=== PATIENT | female | born 1980 | race Caucasian/White ===

== ENCOUNTER 2017-12-12 20:19 | Emergency (ER) | payer OTHER ==
[~2017-12-12] VITALS: Ht 160 cm; Wt 86.0 kg
[~2017-12-12 20:19] MED LIST: LEVO75TA7 PO
[2017-12-12] MEDS ORDERED: IBUPROFEN 600MG TABLET PO ONE (22:45)
[2017-12-13 00:40] LABS: BASOPHILS % 1.5 % (0.0-2.0); EOSINOPHILS % 3.6 % (0.0-5.0); HEMATOCRIT. 32.7 % (36.0-48.0); HEMOGLOBIN. 10.6 g/dL (12.0-16.0); LYMPHOCYTES % 46.9 % (20.0-50.0); MEAN CORPUSCULAR HEMOGLOBIN 27.3 pg (28.0-32.0); MEAN CORPUSCULAR VOLUME 84.2 fL (81.0-99.0); MONOCYTES % 7.9 % (2.0-8.0); NEUTROPHILS % 40.1 % (40.0-76.0); PLATELET 391 x1000/uL (130-400); RED BLOOD CELL COUNT 3.89 mill/uL (4.2-5.4); RED CELL DISTRIBUTION WIDTH 19.6 % (11.6-14.6)
[2017-12-13 00:45] LABS: CHLORIDE 108 mEq/L (98-107)
[2017-12-13 00:48] LABS: HCG SCREEN NEGATIVE
[2017-12-13 01:00] LABS: PARTIAL THROMBOPLASTIN TIME 28.4 sec (23.4-31.0); PROTHROMBIN TIME 10.1 sec (9.4-11.6)
[2017-12-13 02:25] VITALS: BP 135/77
== END 2017-12-13 05:45 | disposition home or self-care (01) ==
LOC: ER 12-13 05:41
DX: S92.322A Displaced fracture of second metatarsal bone, left foot, initial encounter for closed fracture (principal); S92.332A Displaced fracture of third metatarsal bone, left foot, initial encounter for closed fracture; W45.8XXA Other foreign body or object entering through skin, initial encounter; S93.602A Unspecified sprain of left foot, initial encounter; S91.342A Puncture wound with foreign body, left foot, initial encounter; W17.89XA Other fall from one level to another, initial encounter; Y93.01 Activity, walking, marching and hiking; Y92.480 Sidewalk as the place of occurrence of the external cause; D64.89 Other specified anemias; F17.210 Nicotine dependence, cigarettes, uncomplicated; I10 Essential (primary) hypertension; Z88.0 Allergy status to penicillin
CPT/HCPCS: 36415; 73560; 73590; 73610; 73630; 80048; 84703; 85025; 85610; 85730; 86850; 86900; 86901; 99285; Z7610

== ENCOUNTER 2017-12-13 13:59 | Emergency (ER) | payer OTHER ==
[~2017-12-13] VITALS: Ht 160 cm; Wt 86.0 kg
[2017-12-13 20:00] VITALS: BP 126/77
== END 2017-12-13 20:00 | disposition home or self-care (01) ==
LOC: ER 16:19
DX: S90.32XA Contusion of left foot, initial encounter (principal); S80.02XA Contusion of left knee, initial encounter; W45.8XXA Other foreign body or object entering through skin, initial encounter; Y93.9 Activity, unspecified; W19.XXXA Unspecified fall, initial encounter; Y92.89 Other specified places as the place of occurrence of the external cause; I10 Essential (primary) hypertension; F17.210 Nicotine dependence, cigarettes, uncomplicated; Z88.0 Allergy status to penicillin
CPT/HCPCS: 73630; 99283; Z7610

== ENCOUNTER 2018-10-07 14:02 | Inpatient (IN) | payer MEDICAID, OTHER ==
[~2018-10-07] VITALS: Ht 160 cm; Wt 90.7 kg
[2018-10-07] MEDS ORDERED: NITROGLYCERIN 0.4MG TABLET SL SL PRN ×2 (15:45→17:45)
[2018-10-07] MEDS ORDERED: FENTANYL CITRATE/PF 50MCG/ML 2ML VIAL IV ONE (15:45)
[2018-10-07] MEDS ORDERED: NITROGLYCERIN OINT 1GM/INCH UDPKT TD ONE (15:45)
[2018-10-07] MEDS ORDERED: ASPIRIN 81MG TABLET PO ONE (15:45)
[2018-10-07] MEDS ORDERED: LEVOFLOXACIN 500MG PREMIX 100 ML IV ONE (16:00)
[2018-10-07] MEDS ORDERED: AMLODIPINE 10MG TABLET PO ONE (16:00)
[2018-10-07 16:26] LABS: BASOPHILS % 0.9 % (0.0-2.0); EOSINOPHILS % 5.4 % (0.0-5.0); HEMATOCRIT. 41.8 % (36.0-48.0); HEMOGLOBIN. 14.1 g/dL (12.0-16.0); LYMPHOCYTES % 30.6 % (20.0-50.0); MEAN CORPUSCULAR HEMOGLOBIN 31.8 pg (28.0-32.0); MEAN CORPUSCULAR VOLUME 93.9 fL (81.0-99.0); MEAN PLATELET VOLUME 9.2 fl (7.4-10.4); MONOCYTES % 8.4 % (2.0-8.0); NEUTROPHILS % 54.7 % (40.0-76.0); PLATELET 262 x1000/uL (130-400); RED BLOOD CELL COUNT 4.45 mill/uL (4.2-5.4); RED CELL DISTRIBUTION WIDTH 15.5 % (11.6-14.6)
[2018-10-07 16:28] LABS: CHLORIDE 106 mEq/L (98-107)
[2018-10-07 16:36] LABS: HCG SCREEN NEGATIVE
[2018-10-07 17:04] LABS: CLARITY URINE CLEAR (CLEAR); COLOR URINE YELLOW (YELLOW); KETONES URINE NEGATIVE (NEGATIVE); LEUKOCYTE ESTERASE URINE NEGATIVE (NEGATIVE); NITRITE URINE NEGATIVE (NEGATIVE); OCCULT BLOOD URINE NEGATIVE (NEGATIVE); PH URINE 5.5 (4.5-8.0); PROTEIN URINE NEGATIVE (NEGATIVE); SPECIFIC GRAVITY URINE 1.011 (1.005-1.030); UROBILINOGEN URINE 0.2 E.U./dL (0.2-1.0)
[2018-10-07 17:16] LABS: *AMPHETAMINES SCREEN URINE NEGATIVE (NEGATIVE); *BARBITURATES SCREEN URINE NEGATIVE (NEGATIVE); *BENZODIAZEPINES SCREEN URINE NEGATIVE (NEGATIVE); *COCAINE SCREEN URINE NEGATIVE (NEGATIVE); METHADONE URINE SCREEN NEGATIVE (NEGATIVE)
[2018-10-07 17:17] LABS: CANNABINOID URINE SCREEN NEGATIVE (NEGATIVE); OPIATES URINE SCREEN NEGATIVE (NEGATIVE); PHENCYCLIDINE URINE SCREEN NEGATIVE (NEGATIVE)
[2018-10-07] MEDS ORDERED: METHYLPREDNISOLONE SOD SUCC 125 MG/2 ML VIAL IV STA (17:34)
[2018-10-07] MEDS ORDERED: ALBUTEROL (0.083%) 2.5MG/3ML NEB HHN STA (17:34)
[2018-10-07] MEDS ORDERED: IPRATROPIUM BROMIDE (0.02%) 0.5MG/2.5ML NEB HHN STA (17:34)
[2018-10-07] MEDS ORDERED: MAGNESIUM/ALUMINUM HYDROXIDE/SIMETHICONE 30ML UDC PO PRN (17:45)
[2018-10-07] MEDS ORDERED: KETOROLAC 15MG/ML VIAL IV PRN (17:45)
[2018-10-07] MEDS ORDERED: ZOLPIDEM TARTRATE 5MG TABLET PO PRN (17:45)
[2018-10-07] MEDS ORDERED: NA PHOS,M-B/NA PHOS,DI-BA ENEMA 118ML PR PRN (17:45)
[2018-10-07] MEDS ORDERED: ACETAMINOPHEN 325MG TABLET PO PRN (17:45)
[2018-10-07] MEDS ORDERED: DOCUSATE SODIUM 100MG CAPSULE PO PRN (17:45)
[2018-10-07] MEDS ORDERED: GUAIFENESIN 200MG/10ML SUGAR FREE UDC PO PRN (17:45)
[2018-10-07] MEDS ORDERED: CLONIDINE 0.1MG TABLET PO PRN (17:45)
[2018-10-07] MEDS ORDERED: IPRATROPIUM/ALBUTEROL 0.5-3(2.5)MG/3ML NEB INH PRN (17:45)
[2018-10-07] MEDS ORDERED: LORAZEPAM 0.5MG TABLET PO PRN (17:45)
[2018-10-07 18:44] LABS: T4 FREE 0.38 ng/dL (0.76-1.46)
[2018-10-07] MEDS: ONDANSETRON HCL 4MG/2ML INJ IV PRN (21:29)
[2018-10-07 22:25] VITALS: BP 169/108
[2018-10-07] MEDS: LISINOPRIL 20MG TABLET PO SCH (22:46)
[2018-10-07] MEDS: METOPROLOL TARTRATE 25MG TABLET PO SCH (22:46)
[2018-10-08] VITALS: BP 145/93
[2018-10-08] MEDS: AMLODIPINE 10MG TABLET PO SCH ×2 (00:47→08:49)
[2018-10-08 01:33] LABS: CREATINE KINASE 185 IU/L (26-192)
[2018-10-08 01:35] LABS: CREATINE KINASE MB FRACTION 2.4 ng/mL (0.5-3.6)
[2018-10-08 04:00] VITALS: BP 133/92
[2018-10-08] MEDS: ONDANSETRON HCL 4MG/2ML INJ IV PRN ×2 (04:39→08:57)
[2018-10-08 08:00] VITALS: BP 124/61
[2018-10-08] MEDS: LISINOPRIL 20MG TABLET PO SCH (08:49)
[2018-10-08] MEDS: METOPROLOL TARTRATE 25MG TABLET PO SCH (08:49)
[2018-10-08 08:59] LABS: CREATINE KINASE 162 IU/L (26-192)
[2018-10-08 09:00] LABS: CREATINE KINASE MB FRACTION 2.4 ng/mL (0.5-3.6)
[2018-10-08] MEDS ORDERED: FAMOTIDINE 20MG TABLET PO SCH (09:00)
[2018-10-08] MEDS ORDERED: ASPIRIN 325MG EC TABLET PO SCH (09:00)
[2018-10-08 11:04] VITALS: BP 125/80
[2018-10-08 12:00] VITALS: BP 132/87
== END 2018-10-08 13:00 | disposition home or self-care (01) | DRG 203 ==
LOC: ER 14:02 → EDBEDREQ 15:41 → 5WST 17:21 → EDBEDREQ 17:30 → EDBEDREQTM 17:30 → ENRESERV 19:57 → EDBEDREQ 22:14
PROVIDERS: ADMIT Internal Medicine; ATTEND Internal Medicine
DX: R07.89 Other chest pain (principal); E83.51 Hypocalcemia; E03.9 Hypothyroidism, unspecified; E66.9 Obesity, unspecified; F17.210 Nicotine dependence, cigarettes, uncomplicated; I10 Essential (primary) hypertension; Z88.0 Allergy status to penicillin; Z91.11 Patient's noncompliance with dietary regimen; Z91.14 Patient's other noncompliance with medication regimen; Z68.35 Body mass index [BMI] 35.0-35.9, adult
CPT/HCPCS: 36415; 71045; 80061; 80305; 82550; 82553; 83036; 83605; 83880; 84145; 84439; 84443; 84484; 84703; 93005; 94644; 96365; 96366; 96375; 99291; J1885; J1956; J2405; J2930; J3010; J7611

== ENCOUNTER 2022-06-07 12:44 | Emergency (ER) | payer MEDICAID ==
[~2022-06-07] VITALS: Ht 162.6 cm; Wt 80.0 kg
[2022-06-07] MEDS ORDERED: ACETAMINOPHEN 325MG TABLET PO STA (12:55)
[2022-06-07] MEDS ORDERED: METOCLOPRAMIDE HCL 10MG/2ML VIAL IV ONE (13:00)
[2022-06-07] MEDS ORDERED: LABETALOL 5MG/ML SYR 20 MG/4 ML SYRINGE IV ONE ×2 (14:15→15:15)
[2022-06-07 14:16] LABS: BASOPHILS % 0.5 % (0.0-2.0); EOSINOPHILS % 1.5 % (0.0-5.0); HEMATOCRIT. 39.6 % (36.0-48.0); HEMOGLOBIN. 13.5 g/dL (12.0-16.0); LYMPHOCYTES % 23.1 % (20.0-50.0); MEAN CORPUSCULAR HEMOGLOBIN 30.6 pg (28.0-32.0); MEAN PLATELET VOLUME 8.7 fl (7.4-10.4); MONOCYTES % 8.5 % (2.0-8.0); NEUTROPHILS % 66.4 % (40.0-76.0); PLATELET 266 x1000/uL (130-400); RED BLOOD CELL COUNT 4.41 mill/uL (4.2-5.4); RED CELL DISTRIBUTION WIDTH 14.4 % (11.6-14.6)
[2022-06-07 14:21] LABS: CHLORIDE 99 mEq/L (98-107)
[2022-06-07] MEDS ORDERED: KCL 10MEQ/50ML PREMIX 50 ML IV ONE (15:00)
[2022-06-07] MEDS ORDERED: POTASSIUM CHLORIDE 20MEQ TABLET SR PO SCH (15:00)
[2022-06-07] MEDS ORDERED: SODIUM CHLORIDE 0.9% 1,000 ML IV ONE (16:45)
[2022-06-07 18:53] VITALS: BP 167/90
== END 2022-06-07 19:46 | disposition home or self-care (01) ==
LOC: ER 12:44
DX: G43.909 Migraine, unspecified, not intractable, without status migrainosus (principal); I10 Essential (primary) hypertension; I69.351 Hemiplegia and hemiparesis following cerebral infarction affecting right dominant side; E03.9 Hypothyroidism, unspecified; Z88.0 Allergy status to penicillin
CPT/HCPCS: 36415; 80053; 85025; 96361; 96374; 96375; 96376; 99285; J2765; J3490; J7030

== ENCOUNTER 2022-06-26 09:05 | Emergency (ER) | payer MEDICAID ==
[~2022-06-26] VITALS: Ht 160 cm; Wt 81.6 kg
[2022-06-26] MEDS ORDERED: ONDANSETRON 4MG ODT PO ONE (09:45)
[2022-06-26] MEDS ORDERED: ACETAMINOPHEN 325MG TABLET PO ONE (12:00)
[2022-06-26] MEDS ORDERED: AMLODIPINE 10MG TABLET PO SCH (13:00)
[2022-06-26] MEDS ORDERED: AMLO5TAB88 PO (13:34)
[2022-06-26 13:48] VITALS: BP 189/123
== END 2022-06-26 14:31 | disposition home or self-care (01) ==
LOC: ER 09:14
DX: F10.129 Alcohol abuse with intoxication, unspecified (principal); Y90.9 Presence of alcohol in blood, level not specified; I10 Essential (primary) hypertension; E03.9 Hypothyroidism, unspecified; I69.351 Hemiplegia and hemiparesis following cerebral infarction affecting right dominant side; Z88.0 Allergy status to penicillin
CPT/HCPCS: 99284; Q0162

== ENCOUNTER 2022-11-09 12:42 | Inpatient (IN) | payer MEDICAID ==
[~2022-11-09] VITALS: Ht 170.2 cm; Wt 79.5 kg
[~2022-11-09 12:42] MED LIST changes: +AMLO5TAB88 PO
[2022-11-09] MEDS ORDERED: SODIUM CHLORIDE 0.9% 1,000 ML IV ONE (14:15)
[2022-11-09 15:25] LABS: CHLORIDE 108 mEq/L (98-107)
[2022-11-09 15:30] LABS: PROTHROMBIN TIME 10.9 sec (9.6-11.0)
[2022-11-09 15:37] LABS: BASOPHILS % 0.4 % (0.0-2.0); EOSINOPHILS % 0.9 % (0.0-5.0); HEMATOCRIT. 41.8 % (36.0-48.0); HEMOGLOBIN. 14.5 g/dL (12.0-16.0); LYMPHOCYTES % 13.5 % (20.0-50.0); MEAN CORPUSCULAR HEMOGLOBIN 30.9 pg (28.0-32.0); MEAN CORPUSCULAR VOLUME 88.9 fL (81.0-99.0); MEAN PLATELET VOLUME 7.6 fl (7.4-10.4); MONOCYTES % 7.1 % (2.0-8.0); NEUTROPHILS % 78.1 % (40.0-76.0); PLATELET 333 x1000/uL (130-400); RED CELL DISTRIBUTION WIDTH 14.5 % (11.6-14.6)
[2022-11-09 15:42] LABS: ETHANOL BLOOD < 10 mg/dL
[2022-11-09 15:43] LABS: HCG SCREEN NEGATIVE
[2022-11-09] MEDS ORDERED: CLONIDINE 0.1MG TABLET PO NR (15:45)
[2022-11-09] MEDS ORDERED: FUROSEMIDE 20MG/2ML VIAL IVP NR (16:15)
[2022-11-09] MEDS ORDERED: ASPIRIN 325MG EC TABLET PO NR (16:15)
[2022-11-09] MEDS ORDERED: HYDRALAZINE 20MG/ML VIAL IV ONE (17:00)
[2022-11-09 18:49] LABS: CLARITY URINE CLEAR (CLEAR); COLOR URINE YELLOW (YELLOW); KETONES URINE TRACE (NEGATIVE); LEUKOCYTE ESTERASE URINE TRACE (NEGATIVE); NITRITE URINE NEGATIVE (NEGATIVE); OCCULT BLOOD URINE NEGATIVE (NEGATIVE); PROTEIN URINE 2+ (NEGATIVE); SPECIFIC GRAVITY URINE 1.018 (1.005-1.030)
[2022-11-09 19:11] LABS: *AMPHETAMINES SCREEN URINE NEGATIVE (NEGATIVE); *BARBITURATES SCREEN URINE NEGATIVE (NEGATIVE); *BENZODIAZEPINES SCREEN URINE NEGATIVE (NEGATIVE); *COCAINE SCREEN URINE NEGATIVE (NEGATIVE); CANNABINOID URINE SCREEN NEGATIVE (NEGATIVE); METHADONE URINE SCREEN NEGATIVE (NEGATIVE); OPIATES URINE SCREEN NEGATIVE (NEGATIVE); PHENCYCLIDINE URINE SCREEN NEGATIVE (NEGATIVE)
[2022-11-09 20:19] VITALS: BP 151/104
[2022-11-09 20:20] VITALS: BP 151/104
[2022-11-09] MEDS ORDERED: ONDANSETRON HCL 4MG/2ML INJ IV PRN (21:45)
[2022-11-09] MEDS ORDERED: DOCUSATE SODIUM 100MG CAPSULE PO PRN (21:45)
[2022-11-09] MEDS ORDERED: LORAZEPAM 0.5MG TABLET PO PRN (21:45)
[2022-11-09] MEDS ORDERED: IPRATROPIUM/ALBUTEROL 0.5-3(2.5)MG/3ML NEB HHN PRN (21:45)
[2022-11-09] MEDS ORDERED: NALOXONE HCL 0.4MG/ML VIAL IV PRN (21:45)
[2022-11-09] MEDS ORDERED: ACETAMINOPHEN 325MG TABLET PO PRN (21:45)
[2022-11-09] MEDS ORDERED: ALBUTEROL (0.083%) 2.5MG/3ML NEB HHN PRN (22:45)
[2022-11-09] MEDS ORDERED: IPRATROPIUM BROMIDE (0.02%) 0.5MG/2.5ML NEB HHN PRN (22:45)
[2022-11-10] VITALS: BP 163/110
[2022-11-10] MEDS: CLONIDINE 0.1MG TABLET PO PRN ×2 (01:27→16:53)
[2022-11-10] MEDS: HYDROCODONE/ACETAMINOPHEN 5/325MG TABLET PO PRN ×3 (01:27→19:31)
[2022-11-10 04:00] VITALS: BP 145/96
[2022-11-10 06:45] LABS: BASOPHILS % 0.6 % (0.0-2.0); EOSINOPHILS % 4.6 % (0.0-5.0); HEMOGLOBIN. 13.8 g/dL (12.0-16.0); LYMPHOCYTES % 38.8 % (20.0-50.0); MEAN CORPUSCULAR HEMOGLOBIN 30.6 pg (28.0-32.0); MEAN CORPUSCULAR VOLUME 88.7 fL (81.0-99.0); MONOCYTES % 8.3 % (2.0-8.0); NEUTROPHILS % 47.7 % (40.0-76.0); PLATELET 284 x1000/uL (130-400); RED BLOOD CELL COUNT 4.51 mill/uL (4.2-5.4); RED CELL DISTRIBUTION WIDTH 14.4 % (11.6-14.6)
[2022-11-10 08:00] VITALS: BP 150/90
[2022-11-10 08:09] LABS: HEPATITIS B SURFACE ANTIGEN NEGATIVE
[2022-11-10 09:03] LABS: CHLORIDE 106 mEq/L (98-107)
[2022-11-10] MEDS ORDERED: INFLUENZA VACCINE 05/PF 0.5 ML SYRINGE IM ONE (11:00)
[2022-11-10] MEDS ORDERED: PNEUMOCOCCAL 23-VAL P-SAC VAC 0.5 ML IM ONE (11:00)
[2022-11-10 12:00] VITALS: BP 162/90
[2022-11-10] MEDS ORDERED: AMLODIPINE 5MG TABLET PO SCH (12:00)
[2022-11-10] MEDS: ASPIRIN 81MG EC TABLET PO SCH (12:49)
[2022-11-10 16:00] VITALS: BP 181/89
[2022-11-10] MEDS: HYDRALAZINE 20MG/ML VIAL IV PRN (19:10)
[2022-11-10 20:00] VITALS: BP 163/93
[2022-11-10] MEDS: AMLODIPINE 5MG TABLET PO SCH (21:30)
[2022-11-11] VITALS (7 sets, daily range): BP systolic 126–182; BP diastolic 85–109
[2022-11-11 06:54] LABS: BASOPHILS % 0.4 % (0.0-2.0); EOSINOPHILS % 4.2 % (0.0-5.0); HEMATOCRIT. 41.5 % (36.0-48.0); HEMOGLOBIN. 13.7 g/dL (12.0-16.0); LYMPHOCYTES % 18.3 % (20.0-50.0); MEAN CORPUSCULAR HEMOGLOBIN 29.8 pg (28.0-32.0); MEAN CORPUSCULAR VOLUME 90.1 fL (81.0-99.0); MEAN PLATELET VOLUME 7.9 fl (7.4-10.4); MONOCYTES % 7.3 % (2.0-8.0); NEUTROPHILS % 69.8 % (40.0-76.0); PLATELET 283 x1000/uL (130-400); RED CELL DISTRIBUTION WIDTH 14.7 % (11.6-14.6)
[2022-11-11] MEDS ORDERED: LEVOTHYROXINE SODIUM 100MCG TABLET PO NR (10:00)
[2022-11-11] MEDS: AMLODIPINE 5MG TABLET PO SCH ×2 (10:25→20:08)
[2022-11-11] MEDS: ASPIRIN 81MG EC TABLET PO SCH (10:26)
[2022-11-11] MEDS: HYDRALAZINE HCL 50MG TABLET PO SCH ×3 (10:36→21:54)
[2022-11-11] MEDS ORDERED: POTASSIUM CHLORIDE 20MEQ/PACKET PO NR (12:30)
[2022-11-11] MEDS: HYDROCODONE/ACETAMINOPHEN 5/325MG TABLET PO PRN (12:34)
[2022-11-11] MEDS: HYDRALAZINE 20MG/ML VIAL IV PRN ×2 (12:36→18:59)
[2022-11-12 04:00] VITALS: BP 150/112
[2022-11-12] MEDS: HYDRALAZINE HCL 50MG TABLET PO SCH ×3 (05:53→21:19)
[2022-11-12 07:02] LABS: BASOPHILS % 0.4 % (0.0-2.0); EOSINOPHILS % 5.4 % (0.0-5.0); HEMATOCRIT. 41.9 % (36.0-48.0); LYMPHOCYTES % 23.4 % (20.0-50.0); MEAN CORPUSCULAR HEMOGLOBIN 30.3 pg (28.0-32.0); MEAN CORPUSCULAR VOLUME 90.6 fL (81.0-99.0); MEAN PLATELET VOLUME 7.9 fl (7.4-10.4); MONOCYTES % 7.2 % (2.0-8.0); NEUTROPHILS % 63.6 % (40.0-76.0); PLATELET 303 x1000/uL (130-400); RED BLOOD CELL COUNT 4.62 mill/uL (4.2-5.4)
[2022-11-12] MEDS: LEVOTHYROXINE SODIUM 100MCG TABLET PO SCH (07:14)
[2022-11-12] MEDS: CLONIDINE 0.1MG TABLET PO PRN (07:14)
[2022-11-12 07:21] VITALS: BP 162/112
[2022-11-12 08:00] VITALS: BP 159/99
[2022-11-12] MEDS ORDERED: POTASSIUM CHLORIDE 20MEQ/PACKET PO NR (08:00)
[2022-11-12] MEDS: ASPIRIN 81MG EC TABLET PO SCH (09:12)
[2022-11-12] MEDS: AMLODIPINE 5MG TABLET PO SCH ×2 (09:14→21:18)
[2022-11-12 12:00] VITALS: BP 163/100
[2022-11-12] MEDS: HYDROCODONE/ACETAMINOPHEN 5/325MG TABLET PO PRN ×2 (14:39→21:20)
[2022-11-12 16:00] VITALS: BP 146/95
[2022-11-12] MEDS: ACETAMINOPHEN 325MG TABLET PO PRN (18:08)
[2022-11-12 20:00] VITALS: BP 166/103
[2022-11-13] VITALS: BP 142/107
[2022-11-13] MEDS: ACETAMINOPHEN 325MG TABLET PO PRN (00:40)
[2022-11-13 04:00] VITALS: BP_SYST 147; BP_SYST 168; BP_DIAS 103; BP_DIAS 117; BP_DIAS 118
[2022-11-13] MEDS: LEVOTHYROXINE SODIUM 100MCG TABLET PO SCH (06:04)
[2022-11-13] MEDS: HYDRALAZINE HCL 50MG TABLET PO SCH ×2 (06:04→13:11)
[2022-11-13 08:00] VITALS: BP 129/53
[2022-11-13] MEDS: ASPIRIN 81MG EC TABLET PO SCH (08:17)
[2022-11-13] MEDS: AMLODIPINE 5MG TABLET PO SCH (08:18)
[2022-11-13] MEDS: HYDROCODONE/ACETAMINOPHEN 5/325MG TABLET PO PRN (08:21)
[2022-11-13 08:37] LABS: BASOPHILS % 0.3 % (0.0-2.0); EOSINOPHILS % 4.6 % (0.0-5.0); HEMATOCRIT. 40.9 % (36.0-48.0); HEMOGLOBIN. 13.9 g/dL (12.0-16.0); LYMPHOCYTES % 21.5 % (20.0-50.0); MEAN CORPUSCULAR HEMOGLOBIN 30.4 pg (28.0-32.0); MEAN CORPUSCULAR VOLUME 89.6 fL (81.0-99.0); MEAN PLATELET VOLUME 7.8 fl (7.4-10.4); MONOCYTES % 7.1 % (2.0-8.0); NEUTROPHILS % 66.5 % (40.0-76.0); PLATELET 290 x1000/uL (130-400); RED BLOOD CELL COUNT 4.56 mill/uL (4.2-5.4); RED CELL DISTRIBUTION WIDTH 14.6 % (11.6-14.6)
[2022-11-13 08:54] LABS: CHLORIDE 106 mEq/L (98-107)
[2022-11-13] MEDS ORDERED: LOSARTAN POTASSIUM 50 MG TABLET PO SCH (09:30)
[2022-11-13 12:00] VITALS: BP 152/94
[2022-11-13] MEDS ORDERED: LEVO100T9 PO (13:22)
[2022-11-13] MEDS ORDERED: AMLO5TAB88 PO (13:22)
[2022-11-13] MEDS ORDERED: ASPI-1406 PO (13:22)
[2022-11-13] MEDS ORDERED: HYDR-4135 PO (13:22)
[2022-11-13] MEDS ORDERED: LOSA50TA3 PO (13:22)
[2022-11-13] MEDS ORDERED: MECL-217 MT (22:00)
== END 2022-11-13 16:20 | disposition home or self-care (01) | DRG 48 ==
LOC: ER 12:42 → EDBEDREQ 14:11 → EDBEDREQSVC 15:55 → 7EST 17:55 → EDBEDREQ 18:24 → EDBEDREQTM 18:24 → ENRESERV 19:09 → 7EST 20:00
PROVIDERS: ADMIT Internal Medicine; ATTEND Internal Medicine
DX: G90.8 Other disorders of autonomic nervous system (principal); I50.31 Acute diastolic (congestive) heart failure; I16.9 Hypertensive crisis, unspecified; E88.09 Other disorders of plasma-protein metabolism, not elsewhere classified; M94.0 Chondrocostal junction syndrome [Tietze]; I11.0 Hypertensive heart disease with heart failure; E03.9 Hypothyroidism, unspecified; J44.9 Chronic obstructive pulmonary disease, unspecified; Z59.01 Sheltered homelessness; E87.6 Hypokalemia; I16.0 Hypertensive urgency; Z88.0 Allergy status to penicillin; F17.210 Nicotine dependence, cigarettes, uncomplicated; Z79.82 Long term (current) use of aspirin
CPT/HCPCS: 36415; 70551; 71045; 80048; 80053; 80305; 80320; 81003; 83605; 83880; 84145; 84443; 84484; 84703; 85025; 85379; 86803; 87340; 90686; 90732; 93005; 93306; 93880; 93970; 97162; 99291; J0360; J1940; J2405; J7030; G0480

== ENCOUNTER 2022-11-13 18:47 | Emergency (ER) | payer MEDICAID, OTHER ==
[~2022-11-13] VITALS: Ht 160 cm; Wt 78.0 kg
[~2022-11-13 18:47] MED LIST changes: +ASPI-1406 PO; +HYDR-4135 PO; +LEVO100T9 PO; +LOSA50TA3 PO
[2022-11-13] MEDS ORDERED: MECLIZINE 25MG TABLET PO ONE (21:00)
[2022-11-13 21:11] LABS: BASOPHILS % 0.5 % (0.0-2.0); EOSINOPHILS % 0.4 % (0.0-5.0); HEMATOCRIT. 42.3 % (36.0-48.0); HEMOGLOBIN. 14.1 g/dL (12.0-16.0); LYMPHOCYTES % 7.9 % (20.0-50.0); MEAN CORPUSCULAR HEMOGLOBIN 29.9 pg (28.0-32.0); MEAN CORPUSCULAR VOLUME 89.6 fL (81.0-99.0); MEAN PLATELET VOLUME 8.5 fl (7.4-10.4); MONOCYTES % 6.2 % (2.0-8.0); PLATELET 353 x1000/uL (130-400); RED BLOOD CELL COUNT 4.72 mill/uL (4.2-5.4); RED CELL DISTRIBUTION WIDTH 15.1 % (11.6-14.6)
[2022-11-13] MEDS ORDERED: SODIUM CHLORIDE 0.9% 1,000 ML IV ONE (21:15)
[2022-11-13 21:19] LABS: CHLORIDE 99 mEq/L (98-107)
[2022-11-13] MEDS ORDERED: MECL-217 MT (22:00)
[2022-11-13 22:35] VITALS: BP 185/124
== END 2022-11-13 22:30 | disposition home or self-care (01) ==
LOC: ER 18:47
DX: R42 Dizziness and giddiness (principal); I10 Essential (primary) hypertension; E03.9 Hypothyroidism, unspecified; Z86.73 Personal history of transient ischemic attack (TIA), and cerebral infarction without residual deficits
CPT/HCPCS: 36415; 80053; 85025; 93005; 96360; 99284; J8597; Z7610

== ENCOUNTER 2022-12-09 11:32 | Inpatient (IN) | payer MEDICAID, OTHER ==
[~2022-12-09] VITALS: Ht 167.6 cm; Wt 78.9 kg
[~2022-12-09 11:32] MED LIST changes: +MECL-217 MT
[2022-12-09 12:47] LABS: BASOPHILS % 0.3 % (0.0-2.0); EOSINOPHILS % 0.6 % (0.0-5.0); HEMATOCRIT. 43.3 % (36.0-48.0); HEMOGLOBIN. 14.4 g/dL (12.0-16.0); LYMPHOCYTES % 9.5 % (20.0-50.0); MEAN CORPUSCULAR VOLUME 90.2 fL (81.0-99.0); MEAN PLATELET VOLUME 7.8 fl (7.4-10.4); MONOCYTES % 5.1 % (2.0-8.0); NEUTROPHILS % 84.5 % (40.0-76.0); PLATELET 333 x1000/uL (130-400); RED CELL DISTRIBUTION WIDTH 15.8 % (11.6-14.6)
[2022-12-09 12:57] LABS: CHLORIDE 104 mEq/L (98-107)
[2022-12-09 13:09] LABS: HCG SCREEN NEGATIVE
[2022-12-09 17:40] LABS: CLARITY URINE CLOUDY (CLEAR); COLOR URINE YELLOW (YELLOW); KETONES URINE TRACE (NEGATIVE); LEUKOCYTE ESTERASE URINE TRACE (NEGATIVE); NITRITE URINE NEGATIVE (NEGATIVE); OCCULT BLOOD URINE NEGATIVE (NEGATIVE); PROTEIN URINE 2+ (NEGATIVE); UROBILINOGEN URINE 0.2 E.U./dL (0.2-1.0)
[2022-12-09] MEDS ORDERED: LABETALOL 5MG/ML SYR 20 MG/4 ML SYRINGE IV ONE (19:15)
[2022-12-10] MEDS: HYDRALAZINE 20MG/ML VIAL IV PRN ×3 (07:32→17:28)
[2022-12-10] MEDS ORDERED: DIPHENHYDRAMINE 50MG/ML VIAL IV PRN (09:30)
[2022-12-10] MEDS ORDERED: ONDANSETRON HCL 4MG/2ML INJ IV PRN (09:30)
[2022-12-10] MEDS ORDERED: IPRATROPIUM/ALBUTEROL 0.5-3(2.5)MG/3ML NEB HHN PRN (09:30)
[2022-12-10] MEDS: ENOXAPARIN 40MG/0.4ML SYR SUBCUT SCH (10:26)
[2022-12-10] MEDS: CLONIDINE 0.1MG TABLET PO PRN ×2 (13:10→17:50)
[2022-12-10] MEDS: AMLODIPINE 10MG TABLET PO SCH (13:12)
[2022-12-10] MEDS: LOSARTAN POTASSIUM 50 MG TABLET PO SCH (13:12)
[2022-12-10 15:15] VITALS: BP_SYST 116; BP_SYST 134; BP_DIAS 48; BP_DIAS 86
[2022-12-10 17:00] VITALS: BP 193/116
[2022-12-10] MEDS: ACETAMINOPHEN 325MG TABLET PO PRN (17:31)
[2022-12-10 18:00] VITALS: BP 173/106
[2022-12-10 19:44] VITALS: BP 152/104
[2022-12-10 20:50] VITALS: BP 153/112
[2022-12-10 23:05] VITALS: BP 165/107
[2022-12-10] MEDS: METOPROLOL TARTRATE 25MG TABLET PO SCH (23:08)
[2022-12-11] VITALS (7 sets, daily range): BP systolic 147–180; BP diastolic 50–118
[2022-12-11] MEDS: HYDRALAZINE 20MG/ML VIAL IV PRN ×3 (02:23→18:33)
[2022-12-11] MEDS: ACETAMINOPHEN 325MG TABLET PO PRN (02:28)
[2022-12-11 06:08] LABS: *AMPHETAMINES SCREEN URINE NEGATIVE (NEGATIVE); *BARBITURATES SCREEN URINE NEGATIVE (NEGATIVE); *BENZODIAZEPINES SCREEN URINE NEGATIVE (NEGATIVE); *COCAINE SCREEN URINE NEGATIVE (NEGATIVE); CANNABINOID URINE SCREEN NEGATIVE (NEGATIVE); METHADONE URINE SCREEN NEGATIVE (NEGATIVE); OPIATES URINE SCREEN NEGATIVE (NEGATIVE); PHENCYCLIDINE URINE SCREEN NEGATIVE (NEGATIVE)
[2022-12-11 07:43] LABS: BASOPHILS % 0.4 % (0.0-2.0); EOSINOPHILS % 0.7 % (0.0-5.0); HEMATOCRIT. 42.6 % (36.0-48.0); HEMOGLOBIN. 14.2 g/dL (12.0-16.0); LYMPHOCYTES % 15.6 % (20.0-50.0); MEAN CORPUSCULAR HEMOGLOBIN 30.1 pg (28.0-32.0); MEAN CORPUSCULAR VOLUME 90.2 fL (81.0-99.0); MEAN PLATELET VOLUME 8.8 fl (7.4-10.4); MONOCYTES % 5.1 % (2.0-8.0); NEUTROPHILS % 78.2 % (40.0-76.0); PLATELET 306 x1000/uL (130-400); RED BLOOD CELL COUNT 4.72 mill/uL (4.2-5.4); RED CELL DISTRIBUTION WIDTH 16.1 % (11.6-14.6)
[2022-12-11 07:52] LABS: CHLORIDE 107 mEq/L (98-107)
[2022-12-11 08:08] LABS: HDL CHOLESTEROL 78 mg/dL (40-59); LDL CHOLESTEROL 110 mg/dL (5-100)
[2022-12-11] MEDS: AMLODIPINE 10MG TABLET PO SCH (09:48)
[2022-12-11] MEDS: LOSARTAN POTASSIUM 50 MG TABLET PO SCH (09:48)
[2022-12-11] MEDS: METOPROLOL TARTRATE 25MG TABLET PO SCH ×2 (09:49→21:57)
[2022-12-11] MEDS ORDERED: METOPROLOL TARTRATE 25MG TABLET PO NR (10:45)
[2022-12-11] MEDS ORDERED: LOSARTAN POTASSIUM 50 MG TABLET PO NR (10:45)
[2022-12-11] MEDS: ENOXAPARIN 40MG/0.4ML SYR SUBCUT SCH (12:22)
[2022-12-11] MEDS: LEVOTHYROXINE SODIUM 100MCG TABLET PO SCH (12:23)
[2022-12-11] MEDS: ASPIRIN 81MG TABLET PO SCH (12:24)
[2022-12-11 13:45] LABS: T4 FREE 0.58 ng/dL (0.76-1.46)
[2022-12-11] MEDS: ATORVASTATIN CALCIUM 40MG TABLET PO SCH (21:57)
[2022-12-12] VITALS (7 sets, daily range): BP systolic 153–170; BP diastolic 91–111
[2022-12-12] MEDS: CLONIDINE 0.1MG TABLET PO PRN (00:40)
[2022-12-12] MEDS: LEVOTHYROXINE SODIUM 100MCG TABLET PO SCH (06:37)
[2022-12-12] MEDS: ENOXAPARIN 40MG/0.4ML SYR SUBCUT SCH (09:13)
[2022-12-12] MEDS: ASPIRIN 81MG TABLET PO SCH (09:13)
[2022-12-12] MEDS: AMLODIPINE 10MG TABLET PO SCH (09:13)
[2022-12-12] MEDS: METOPROLOL TARTRATE 25MG TABLET PO SCH (09:14)
[2022-12-12] MEDS: LOSARTAN POTASSIUM 100 MG TABLET PO SCH (09:21)
[2022-12-12] MEDS ORDERED: LEVOTHYROXINE SODIUM 50MCG TABLET PO NR (09:30)
[2022-12-12] MEDS: HYDRALAZINE 20MG/ML VIAL IV PRN (16:08)
[2022-12-12] MEDS: TRIAMTERENE/HCTZ 37.5/25MG TABLET PO SCH (16:11)
[2022-12-12] MEDS ORDERED: ABIL5 PO (20:13)
[2022-12-12] MEDS ORDERED: GABA-532 PO (20:14)
[2022-12-12] MEDS ORDERED: KEPP500 PO (20:16)
[2022-12-12] MEDS: METOPROLOL TARTRATE 50MG TABLET PO SCH (20:28)
[2022-12-12] MEDS: ATORVASTATIN CALCIUM 40MG TABLET PO SCH (20:28)
[2022-12-13 00:03] VITALS: BP 140/98
[2022-12-13 04:14] VITALS: BP 135/81
[2022-12-13] MEDS: LEVOTHYROXINE SODIUM 100MCG TABLET PO SCH (06:09)
[2022-12-13 06:40] LABS: BASOPHILS % 0.8 % (0.0-2.0); EOSINOPHILS % 3.3 % (0.0-5.0); HEMATOCRIT. 43.2 % (36.0-48.0); HEMOGLOBIN. 14.5 g/dL (12.0-16.0); LYMPHOCYTES % 29.3 % (20.0-50.0); MEAN CORPUSCULAR HEMOGLOBIN 30.2 pg (28.0-32.0); MEAN PLATELET VOLUME 8.8 fl (7.4-10.4); MONOCYTES % 9.5 % (2.0-8.0); NEUTROPHILS % 57.1 % (40.0-76.0); PLATELET 325 x1000/uL (130-400); RED BLOOD CELL COUNT 4.81 mill/uL (4.2-5.4); RED CELL DISTRIBUTION WIDTH 16.1 % (11.6-14.6)
[2022-12-13 08:00] VITALS: BP 160/105
[2022-12-13] MEDS: ENOXAPARIN 40MG/0.4ML SYR SUBCUT SCH (08:46)
[2022-12-13] MEDS: METOPROLOL TARTRATE 50MG TABLET PO SCH ×2 (08:47→21:38)
[2022-12-13] MEDS: TRIAMTERENE/HCTZ 37.5/25MG TABLET PO SCH (08:47)
[2022-12-13] MEDS: ASPIRIN 81MG TABLET PO SCH (08:47)
[2022-12-13] MEDS: LEVETIRACETAM 500MG TABLET PO SCH ×2 (08:48→16:36)
[2022-12-13] MEDS: LOSARTAN POTASSIUM 100 MG TABLET PO SCH (08:48)
[2022-12-13] MEDS: CLONIDINE 0.1MG TABLET PO PRN (08:48)
[2022-12-13] MEDS: AMLODIPINE 10MG TABLET PO SCH (08:48)
[2022-12-13] MEDS: GABAPENTIN 300MG CAPSULE PO SCH ×3 (08:48→16:36)
[2022-12-13] MEDS: ARIPIPRAZOLE 5MG TABLET PO SCH (11:14)
[2022-12-13 12:00] VITALS: BP 136/98
[2022-12-13] MEDS: HYDRALAZINE HCL 50MG TABLET PO SCH ×2 (13:57→21:38)
[2022-12-13 16:00] VITALS: BP 134/88
[2022-12-13 20:19] VITALS: BP 112/72
[2022-12-13] MEDS: ATORVASTATIN CALCIUM 40MG TABLET PO SCH (21:38)
[2022-12-14 00:33] VITALS: BP 150/79
[2022-12-14 05:15] VITALS: BP 126/80
[2022-12-14] MEDS: HYDRALAZINE HCL 50MG TABLET PO SCH ×3 (05:57→21:06)
[2022-12-14] MEDS: LEVOTHYROXINE SODIUM 100MCG TABLET PO SCH (05:57)
[2022-12-14 07:50] LABS: BASOPHILS % 0.8 % (0.0-2.0); EOSINOPHILS % 3.2 % (0.0-5.0); HEMATOCRIT. 43.7 % (36.0-48.0); HEMOGLOBIN. 14.7 g/dL (12.0-16.0); LYMPHOCYTES % 25.1 % (20.0-50.0); MEAN CORPUSCULAR HEMOGLOBIN 30.3 pg (28.0-32.0); MEAN CORPUSCULAR VOLUME 90.4 fL (81.0-99.0); MONOCYTES % 7.7 % (2.0-8.0); NEUTROPHILS % 63.2 % (40.0-76.0); PLATELET 350 x1000/uL (130-400); RED BLOOD CELL COUNT 4.84 mill/uL (4.2-5.4); RED CELL DISTRIBUTION WIDTH 15.7 % (11.6-14.6)
[2022-12-14 08:00] VITALS: BP 134/97
[2022-12-14] MEDS: ENOXAPARIN 40MG/0.4ML SYR SUBCUT SCH (08:46)
[2022-12-14] MEDS: AMLODIPINE 10MG TABLET PO SCH (08:46)
[2022-12-14] MEDS: LOSARTAN POTASSIUM 100 MG TABLET PO SCH (08:46)
[2022-12-14] MEDS: TRIAMTERENE/HCTZ 37.5/25MG TABLET PO SCH (08:46)
[2022-12-14] MEDS: ARIPIPRAZOLE 5MG TABLET PO SCH (08:47)
[2022-12-14] MEDS: LEVETIRACETAM 500MG TABLET PO SCH ×2 (08:47→17:04)
[2022-12-14] MEDS: ASPIRIN 81MG TABLET PO SCH (08:47)
[2022-12-14] MEDS: GABAPENTIN 300MG CAPSULE PO SCH ×3 (08:47→17:04)
[2022-12-14] MEDS: METOPROLOL TARTRATE 50MG TABLET PO SCH ×2 (08:47→21:06)
[2022-12-14 12:00] VITALS: BP 122/82
[2022-12-14 16:00] VITALS: BP 141/86
[2022-12-14 19:52] VITALS: BP 135/94
[2022-12-14] MEDS: ATORVASTATIN CALCIUM 40MG TABLET PO SCH (21:05)
[2022-12-15 00:09] VITALS: BP 132/75
[2022-12-15 04:12] VITALS: BP 129/91
[2022-12-15] MEDS: LEVOTHYROXINE SODIUM 150MCG TABLET PO SCH (06:06)
[2022-12-15] MEDS: HYDRALAZINE HCL 50MG TABLET PO SCH ×3 (06:06→22:16)
[2022-12-15 08:00] VITALS: BP 138/50
[2022-12-15] MEDS: GABAPENTIN 300MG CAPSULE PO SCH ×3 (08:57→17:20)
[2022-12-15] MEDS: TRIAMTERENE/HCTZ 37.5/25MG TABLET PO SCH (08:57)
[2022-12-15] MEDS: ENOXAPARIN 40MG/0.4ML SYR SUBCUT SCH (08:57)
[2022-12-15] MEDS: LEVETIRACETAM 500MG TABLET PO SCH ×2 (08:57→21:20)
[2022-12-15] MEDS: LOSARTAN POTASSIUM 100 MG TABLET PO SCH (08:57)
[2022-12-15] MEDS: AMLODIPINE 10MG TABLET PO SCH (08:58)
[2022-12-15] MEDS: METOPROLOL TARTRATE 50MG TABLET PO SCH ×2 (08:58→21:20)
[2022-12-15] MEDS: ASPIRIN 81MG TABLET PO SCH (08:58)
[2022-12-15] MEDS: ARIPIPRAZOLE 5MG TABLET PO SCH (09:00)
[2022-12-15 12:00] VITALS: BP 128/85
[2022-12-15] MEDS: HYDRALAZINE 20MG/ML VIAL IV PRN (12:58)
[2022-12-15 16:00] VITALS: BP 127/77
[2022-12-15 20:00] VITALS: BP 127/80
[2022-12-15] MEDS: ATORVASTATIN CALCIUM 40MG TABLET PO SCH (21:20)
[2022-12-16] VITALS: BP 127/80
[2022-12-16 04:00] VITALS: BP 116/72
[2022-12-16] MEDS: HYDRALAZINE HCL 50MG TABLET PO SCH (06:30)
[2022-12-16] MEDS: LEVOTHYROXINE SODIUM 150MCG TABLET PO SCH (06:30)
[2022-12-16 08:00] VITALS: BP 121/60
[2022-12-16] MEDS: METOPROLOL TARTRATE 50MG TABLET PO SCH (09:00)
[2022-12-16] MEDS: LEVETIRACETAM 500MG TABLET PO SCH (09:20)
[2022-12-16] MEDS: ENOXAPARIN 40MG/0.4ML SYR SUBCUT SCH (09:20)
[2022-12-16] MEDS: ASPIRIN 81MG TABLET PO SCH (09:20)
[2022-12-16] MEDS: ARIPIPRAZOLE 5MG TABLET PO SCH (09:20)
[2022-12-16] MEDS: GABAPENTIN 300MG CAPSULE PO SCH ×2 (09:20→13:47)
[2022-12-16] MEDS: AMLODIPINE 10MG TABLET PO SCH (09:21)
[2022-12-16] MEDS: TRIAMTERENE/HCTZ 37.5/25MG TABLET PO SCH (09:22)
[2022-12-16] MEDS: LOSARTAN POTASSIUM 100 MG TABLET PO SCH (09:23)
[2022-12-16 12:00] VITALS: BP 121/65
[2022-12-16] MEDS ORDERED: HYDRALAZINE HCL 100MG TABLET PO SCH (14:00)
[2022-12-16] MEDS ORDERED: ABIL5 PO (14:20)
[2022-12-16] MEDS ORDERED: LIP40 PO (14:20)
[2022-12-16] MEDS ORDERED: ASPI-1160 PO (14:20)
[2022-12-16] MEDS ORDERED: KEPP500 PO (14:20)
[2022-12-16] MEDS ORDERED: GABA-532 PO (14:20)
[2022-12-16] MEDS ORDERED: METO-539 PO (14:20)
[2022-12-16] MEDS ORDERED: HYDR100T26 PO (14:20)
[2022-12-16] MEDS ORDERED: LOSA100T4 PO (14:20)
[2022-12-16] MEDS ORDERED: AMLO10TA80 PO (14:20)
[2022-12-16] MEDS ORDERED: SYN150 PO (14:20)
[2022-12-16] MEDS ORDERED: TRIA1TAB92 MT (14:20)
[2022-12-16 16:00] VITALS: BP 119/60
== END 2022-12-16 17:16 | disposition home or self-care (01) | DRG 199 ==
LOC: ER 11:32 → EDBEDREQ 13:56 → MICUSO 21:35 → EDBEDREQ 12-10 00:42 → 3WST 12-10 15:00
PROVIDERS: ADMIT Internal Medicine; ATTEND Internal Medicine
DX: I16.0 Hypertensive urgency (principal); I24.8 Other forms of acute ischemic heart disease; I50.30 Unspecified diastolic (congestive) heart failure; I11.0 Hypertensive heart disease with heart failure; F31.9 Bipolar disorder, unspecified; J44.9 Chronic obstructive pulmonary disease, unspecified; R47.1 Dysarthria and anarthria; R73.9 Hyperglycemia, unspecified; F17.200 Nicotine dependence, unspecified, uncomplicated; I69.392 Facial weakness following cerebral infarction; Z63.4 Disappearance and death of family member; Z80.41 Family history of malignant neoplasm of ovary; Z88.0 Allergy status to penicillin; Z79.899 Other long term (current) drug therapy; Z59.01 Sheltered homelessness
CPT/HCPCS: 36415; 70551; 71045; 80048; 80053; 80061; 80305; 81003; 82533; 83036; 83735; 84439; 84443; 84481; 84484; 84703; 85025; 86376; 93005; 93970; 97116; 97162; 99285; J0360; J1650; J3490